=== PATIENT | female | born 1955 | race Caucasian/White ===

== ENCOUNTER 2017-09-22 16:21 | Emergency (ER) | payer BC, OTHER, SELFPAY ==
[2017-09-22 16:37] VITALS: BP 184/93
[2017-09-22] MEDS ORDERED: Sodium Chloride 0.9% 10 ML Syringe FLUSH PRN (17:42)
[2017-09-22] MEDS ORDERED: Acetaminophen 325 MG Tab PO ONE (17:42)
--- NOTE | 2017-09-22 17:43 | EDM.PDOC ---
ED HPI GENERAL MEDICAL PROBLEM - General Chief Complaint: Headache Stated Complaint: HIGH BP,MIGRAINE,TROUBLE WITH VISION Time Seen by Provider: 09/22/17 16:45 Source of Information: Reports: Patient History Limitations: Reports: No Limitations - History of Present Illness INITIAL COMMENTS - FREE TEXT/NARRATIVE: Patient is a 61 y/o female who presents to the E.D. complaining of a dull pressure migraine to the left side of her face and head. States the headache started 2 days ago and has utilized excedrin with some relief. States the discomfort has been constant in nature. States it feels like a migraine and notes last occurrence of migraine was 10 years ago. For the past few months has been dealing with increased sinus congestion with post nasal drainage and running nose. States she was evaluated the 04 of September diagnosed with viral URI. Questions if she may have a sinus infection. She has been traveling throughout the [place] for the past few weeks. Has been exposed to multiple people with viral symptoms. She has only used excedrin to treat the current symptoms. Has been tired as of recent and been experiencing heaviness to her arms with onset of symptoms. Denies fever, vision changes, worsening stiff neck, ear pain, chest pain, sob, vomiting, diarrhea, pain with urination, or rash. She offers no additional complaints. Left Headache Pain Score (Numeric/FACES): 5 - Related Data Allergies Allergy/AdvReac Type Severity Reaction Status Date / Time No Known Allergies Allergy Verified 02/24/15 16:19 Home Meds: Home Meds Omega3/Dha/Epa/Fish Oil/Vit D3 [[place]-3 + Vitamin D3] 1 tab PO DAILY 08/02/14 [ History] Alendronate [Fosamax] 1 tab PO ASDIRECTED 02/24/15 [History] Cholecalciferol (Vitamin D3) [Vitamin D3] 1,000 unit PO DAILY 02/24/15 [History] Lisinopril/Hydrochlorothiazide [Lisinopril-Hctz 10-12.5 mg Tab] 1 tab PO DAILY 02/24/15 [History] Multivitamin [Multi-Vitamin Daily] 1 tab PO DAILY 02/24/15 [History] Potassium Chloride 10 meq PO BID 02/24/15 [History] Simvastatin 10 mg PO BEDTIME 02/24/15 [History] Flaxseed/Omega3,6,9/Fatty Acid [Flax Seed Oil 1,300 mg Softgel] 1 tab PO BID 06/03 [History] Melatonin/Pyridoxine HCl (B6) [Melatonin 3 mg Tablet] 1 tab PO DAILY 02/25/15 [ History] Azithromycin [Zithromax] 500 mg PO ASDIRECTED #6 tablet 09/22/17 [Rx] Past Medical History - Past Health History Medical/Surgical History: Denies Medical/Surgical History HEENT History: Reports: Impaired Vision Other HEENT History: wears glasses Cardiovascular History: Reports: High Cholesterol, Hypertension Social & Family History - Tobacco Use Smoking Status *Q: Never Smoker Second Hand Smoke Exposure: No - Caffeine Use Caffeine Use: Reports: Coffee - Alcohol Use Days Per Week of Alcohol Use: 0 (occasional sip) Number of Drinks Per Day: 0 Total Drinks Per Week: 0 - Recreational Drug Use Recreational Drug Use: No Drug Use in Last 12 Months: No ED ROS GENERAL - Review of Systems Review Of Systems: ROS reveals no pertinent complaints other than HPI. - Physical Exam Exam: See Below Exam Limited By: No Limitations General Appearance: Alert, WD/WN, No Apparent Distress Eye Exam: Bilateral Eye: EOMI, PERRL Ears: Normal External Exam, Normal Canal, Hearing Grossly Normal, Normal TMs Nose: Normal Inspection, Nasal Drainage, Clear Rhinorrhea. No: Nasal Tenderness Throat/Mouth: Normal Inspection, Normal Oropharynx, Normal Voice, No Airway Compromise Head Exam: Atraumatic, Normocephalic Neck: Normal Inspection, Supple, Non-Tender, Full Range of Motion Respiratory/Chest: No Respiratory Distress, Lungs Clear, Normal Breath Sounds, No Accessory Muscle Use, Chest Non-Tender Cardiovascular: Normal Peripheral Pulses, Regular Rate, Rhythm GI/Abdominal: Normal Bowel Sounds, Soft, Non-Tender, No Organomegaly, No Distention Neuro Exam (Abbreviated): Alert, Oriented, CN II-XII Intact, Normal Cognition, Normal Gait, No Motor/Sensory Deficits, Other (cerebellar fx intact including: finger to nose, rapid alternating movements. No facial droop, temperal tenderness, slurred speech, or weekness to the upper/lower extremities. ) Back Exam: Normal Inspection Extremities: Normal Inspection, Normal Range of Motion, Non-Tender, No Pedal Edema, Normal Capillary Refill Psychiatric: Normal Affect, Normal Mood Skin Exam: Warm, Dry, Intact, Normal Color, No Rash Course - Vital Signs Last Recorded V/S: Last Vital Signs Temp 97.1 F 09/22/17 16:31 Pulse 62 09/22/17 16:31 Resp 18 09/22/17 16:31 BP 184/93 H 09/22/17 16:31 Pulse Ox 96 09/22/17 16:31 - Orders/Labs/Meds Labs: Laboratory Tests 09/22/17 09/22/17 Range/Units 16:30 16:30 WBC 5.95 (3.98-10.04) K/mm3 RBC 5.33 H (3.98-5.22) M/mm3 Hgb 15.4 (11.2-15.7) gm/L Hct 45.8 H (34.1-44.9) % MCV 85.9 (79.4-94.8) fl MCH 28.9 (25.6-32.2) pg MCHC 33.6 (32.2-35.5) g/dl RDW Std Deviation 41.3 (36.4-46.3) fL Plt Count 224 (182-369) K/mm3 MPV 10.5 (9.4-12.3) fl Neut % (Auto) 50.2 (34.0-71.1) % Lymph % (Auto) 32.8 (19.3-51.7) % [place] % (Auto) 10.9 (4.7-12.5) % Eos % (Auto) 4.9 (0.7-5.8) Baso % (Auto) 1.0 (0.1-1.2) % Neut # (Auto) 2.99 (1.56-6.13) K/mm3 Lymph # (Auto) 1.95 (1.18-3.74) K/mm3 [place] # (Auto) 0.65 H (0.24-0.36) K/mm3 Eos # (Auto) 0.29 (0.04-0.36) K/mm3 Baso # (Auto) 0.06 (0.01-0.08) K/mm3 Sodium 141 (136-145) mEq/L Potassium 3.7 (3.5-5.1) mEq/L Chloride 103 (98-107) mEq/L Carbon Dioxide 29 (21-32) mEq/L Anion Gap 12.7 (5-15) BUN 19 H (7-18) mg/dL Creatinine 1.0 (0.55-1.02) mg/dL Est Cr Clr Drug Dosing 53.16 mL/min Estimated GFR (MDRD) 56 (>60) mL/min BUN/Creatinine Ratio 19.0 H (14-18) Glucose 87 (80-115) mg/dL Calcium 9.6 (8.5-10.1) mg/dL Total Bilirubin 0.5 (0.2-1.0) mg/dL AST 31 (15-37) U/L ALT 56 (14-59) U/L Alkaline Phosphatase 99 (46-116) U/L Troponin I < 0.017 (0.00-0.056) ng/mL Total Protein 7.4 (6.4-8.2) g/dl Albumin 4.3 (3.4-5.0) g/dl Globulin 3.1 gm/dL Albumin/Globulin Ratio 1.4 (1-2) TSH 3rd Generation 2.761 (0.358-3.74) uIU/mL Meds: Medications Discontinued Medications Generic Name Dose Route Start Last Admin Trade Name Freq PRN Reason Stop Dose Admin Acetaminophen 650 mg 09/22/17 17:42 09/22/17 18:28 Tylenol PO 09/22/17 17:43 650 mg NOW ONE Administration Sodium Chloride 10 ml 09/22/17 17:42 09/22/17 18:28 Saline Flush FLUSH 10 ml ASDIRECTED PRN Administration Keep Vein Open - Re-Assessments/Exams Free Text/Narrative Re-Assessment/Exam: Upon admission to the E.D. patients BP is quite elevated which is above normal per patient. EKG and labs will be obtained. EKG sinus rhythm at a rate of [address] changes noted. Blood pressure recheck 139/77. Labs reviewed and discussed with patient. Will go ahead and treat the patient with fluticasone, Claritin, and short course of antibiotics for chronic sinusitis. She has appointment with her PCP this coming Tuesday for reevaluation. Discharge instructions as documented. Departure - Departure Time of Disposition: 19:09 Disposition: Home, Self-Care 01 Condition: Good Clinical Impression: Sinusitis Qualifiers: Sinusitis location: maxillary Chronicity: subacute Qualified Code(s): J01.00 - Acute maxillary sinusitis, unspecified - Discharge Information Prescriptions: Azithromycin [Zithromax] 500 mg PO ASDIRECTED #6 tablet Instructions: Sinus Headache, [id number] Referrals: Ruth Layne FRONT COUNTER CLERK [Primary Care Provider] - Forms: ED Department Discharge Additional Instructions: As discussed will treat you for chronic sinusitis with azithromycin 500 mg today then 250 mg by mouth thereafter. Flonase 1 spray to each nare twice a day and also Claritin 10 mg every day thereafter. May use nasal saline spray to each nare as needed throughout the course of the day. Take Tylenol and ibuprofen in alternating fashion for any discomfort. Follow-up with PCP as scheduled for next week. Return to the ED for any new or worsening symptoms
== END 2017-09-22 19:32 | disposition home or self-care (01) ==
LOC: JD.ED 16:21
DX: J01.00 Acute maxillary sinusitis, unspecified (principal); I10 Essential (primary) hypertension; E78.00 Pure hypercholesterolemia, unspecified; Z79.899 Other long term (current) drug therapy
CPT/HCPCS: 36415; 80053; 84443; 84484; 85025; 93005; 99284; A9270; J7050; 93010; 99283-25

== ENCOUNTER 2018-02-20 12:16 | Emergency (ER) | payer OTHER ==
[2018-02-20 12:30] VITALS: BP 153/85
[2018-02-20] MEDS ORDERED: Sodium Chloride 0.9% 10 ML Syringe FLUSH PRN (13:05)
--- NOTE | 2018-02-20 13:12 | EDM.PDOC ---
<YanelisViji - Last Filed: 02/20/18 13:07> ED HPI GENERAL MEDICAL PROBLEM - General Chief Complaint: Chest Pain Stated Complaint: RIGHT CHEST/BACK PAIN Time Seen by Provider: 02/20/18 12:37 Source of Information: Reports: Patient History Limitations: Reports: No Limitations - History of Present Illness INITIAL COMMENTS - FREE TEXT/NARRATIVE: 62 yo female presents to the ED for subxiphoid pain x 1 week. The pain is normally present but waxes and wanes throughout the day. The pain is sharp at times and dull and knotting at times, it normally radiates to the R shoulder blade area at its worse. She has associated nausea over the past week as well as increased shortness of breath. Denies chest pain or pressure or pleuritic chest pain. She believes food makes the nausea better. She has used some of her pain pills at home with moderate relief. She reports hot flashes and night sweats with "clamminess" over the past week, worse at night. Onset: Gradual Duration: Week(s): (1), Waxing/Waning Location: Reports: Chest, Abdomen Quality: Reports: Pressure, Stabbing Severity: Moderate Improves with: Reports: Rest Worsens with: Reports: Movement Associated Symptoms: Reports: Nausea/Vomiting, Shortness of Breath Chest Pain Score (Numeric/FACES): 2 - Related Data Allergies Allergy/AdvReac Type Severity Reaction Status Date / Time No Known Allergies Allergy Verified 02/20/18 12:30 Home Meds: Home Meds Omega3/Dha/Epa/Fish Oil/Vit D3 [[place]-3 + Vitamin D3] 1 tab PO DAILY 08/02/14 [ History] Alendronate [Fosamax] 1 tab PO ASDIRECTED 02/24/15 [History] Cholecalciferol (Vitamin D3) [Vitamin D3] 1,000 unit PO DAILY 02/24/15 [History] Lisinopril/Hydrochlorothiazide [Lisinopril-Hctz 10-12.5 mg Tab] 1 tab PO DAILY 02/24/15 [History] Multivitamin [Multi-Vitamin Daily] 1 tab PO DAILY 02/24/15 [History] Potassium Chloride 10 meq PO BID 02/24/15 [History] Simvastatin 10 mg PO BEDTIME 02/24/15 [History] Flaxseed/Omega3,6,9/Fatty Acid [Flax Seed Oil 1,300 mg Softgel] 1 tab PO BID 06/03 [History] Melatonin/Pyridoxine HCl (B6) [Melatonin 3 mg Tablet] 1 tab PO DAILY 02/25/15 [ History] Omeprazole Magnesium [Prilosec Otc] 20 mg PO DAILY #14 tablet. 02/20/18 [Rx] Past Medical History - Past Health History Medical/Surgical History: Denies Medical/Surgical History HEENT History: Reports: Impaired Vision Other HEENT History: wears glasses Cardiovascular History: Reports: High Cholesterol, Hypertension Social & Family History - Tobacco Use Smoking Status *Q: Never Smoker - Caffeine Use Caffeine Use: Reports: Coffee - Recreational Drug Use Recreational Drug Use: No ED ROS GENERAL - Review of Systems Review Of Systems: See Below Constitutional: Reports: Fever, Chills, Night Sweats. Denies: Malaise, Weakness Respiratory: Reports: Shortness of Breath. Denies: Wheezing, Pleuritic Chest Pain, Cough, Hemoptysis Cardiovascular: Reports: Chest Pain. Denies: Claudication, Dyspnea on Exertion , Edema, Lightheadedness, Orthopnea, Palpitations, PND Endocrine: Reports: No Symptoms GI/Abdominal: Reports: Abdominal Pain (chronic lower, bilateral), Nausea. Denies: Bloody Stool, Constipation, Diarrhea, Vomiting : Reports: No Symptoms Musculoskeletal: Reports: Shoulder Pain, Back Pain (chronic, worse over the past week). Denies: Arm Pain, Joint Swelling Skin: Reports: No Symptoms Neurological: Reports: Headache (mild). Denies: Confusion, Dizziness, Numbness , Paresthesia, Tingling Psychiatric: Reports: No Symptoms Hematologic/Lymphatic: Reports: No Symptoms Immunologic: Reports: No Symptoms ED EXAM, GI/ABD - Physical Exam Exam: See Below Exam Limited By: No Limitations General Appearance: Alert, WD/WN, No Apparent Distress Head: Atraumatic, Normocephalic Neck: Normal Inspection, Supple, Non-Tender, Full Range of Motion Respiratory/Chest: No Respiratory Distress, Lungs Clear, Normal Breath Sounds, No Accessory Muscle Use Cardiovascular: Normal Peripheral Pulses, Regular Rate, Rhythm, No Edema, No Murmur, No Rub GI/Abdominal Exam: Normal Bowel Sounds, Soft, Non-Tender Back Exam: Normal Inspection, Other (muscle tenderness to palpation near R scapula). No: Vertebral Tenderness Extremities: Normal Inspection, No Pedal Edema Neurological: Alert, Oriented, Normal Cognition Psychiatric: Normal Affect, Normal Mood Skin Exam: Warm, Dry, Intact, Normal Color Course - Vital Signs Last Recorded V/S: Last Vital Signs Temp 98.1 F 02/20/18 12:27 Pulse 60 02/20/18 12:27 Resp 16 02/20/18 12:27 BP 153/85 H 02/20/18 12:27 Pulse Ox 97 02/20/18 12:27 - Orders/Labs/Meds Orders: Active Orders 24 hr Category Date Time Status Cardiac Monitoring [RC] . DIRECTED Care 02/20/18 13:05 Active EKG Documentation Completion [RC] STAT Care 02/20/18 13:06 Active Peripheral IV Care [RC] . DIRECTED Care 02/20/18 13:06 Active Chest 2V [CR] Stat Exams 02/20/18 13:06 Taken CULTURE URINE [RM] Stat Lab 02/20/18 16:54 Ordered UA W/MICROSCOPIC [URIN] Stat Lab 02/20/18 13:25 Ordered Sodium Chloride 0.9% [Saline Flush] Med 02/20/18 13:05 Active 10 ml FLUSH ASDIRECTED PRN Peripheral IV Insertion Adult [OM.PC] Stat Oth 02/20/18 13:05 Ordered Medication Orders Sodium Chloride (Saline Flush) 10 ml FLUSH ASDIRECTED PRN PRN Reason: Keep Vein Open Last Admin: 02/20/18 13:08 Dose: 0.01 ml Labs: Laboratory Tests 02/20/18 02/20/18 02/20/18 Range/Units 13:17 13:17 13:25 WBC 4.76 (3.98-10.04) K/mm3 RBC 5.09 (3.98-5.22) M/mm3 Hgb 14.7 (11.2-15.7) gm/L Hct 43.7 (34.1-44.9) % MCV 85.9 (79.4-94.8) fl MCH 28.9 (25.6-32.2) pg MCHC 33.6 (32.2-35.5) g/dl RDW Std Deviation 40.6 (36.4-46.3) fL Plt Count 203 (182-369) K/mm3 MPV 9.7 (9.4-12.3) fl Neut % (Auto) 52.3 (34.0-71.1) % Lymph % (Auto) 33.8 (19.3-51.7) % [place] % (Auto) 8.0 (4.7-12.5) % Eos % (Auto) 4.6 (0.7-5.8) Baso % (Auto) 1.1 (0.1-1.2) % Neut # (Auto) 2.49 (1.56-6.13) K/mm3 Lymph # (Auto) 1.61 (1.18-3.74) K/mm3 [place] # (Auto) 0.38 H (0.24-0.36) K/mm3 Eos # (Auto) 0.22 (0.04-0.36) K/mm3 Baso # (Auto) 0.05 (0.01-0.08) K/mm3 Sodium 139 (136-145) mEq/L Potassium 4.2 (3.5-5.1) mEq/L Chloride 103 (98-107) mEq/L Carbon Dioxide 30 (21-32) mEq/L Anion Gap 10.2 (5-15) BUN 18 (7-18) mg/dL Creatinine 0.9 (0.55-1.02) mg/dL Est Cr Clr Drug Dosing 55.97 mL/min Estimated GFR (MDRD) > 60 (>60) mL/min BUN/Creatinine Ratio 20.0 H (14-18) Glucose 117 H (80-115) mg/dL Calcium 9.2 (8.5-10.1) mg/dL Total Bilirubin 0.6 (0.2-1.0) mg/dL AST 21 (15-37) U/L ALT 30 (14-59) U/L Alkaline Phosphatase 79 (46-116) U/L Troponin I < 0.017 (0.00-0.056) ng/mL Total Protein 6.6 (6.4-8.2) g/dl Albumin 3.9 (3.4-5.0) g/dl Globulin 2.7 gm/dL Albumin/Globulin Ratio 1.4 (1-2) Lipase 157 (73-393) U/L Urine Color Yellow (Yellow) Urine Appearance Clear (Clear) Urine pH 7.0 (5.0-8.0) Ur Specific [place] 1.015 (1.005-1.030) Urine Protein Negative (Negative) Urine Glucose (UA) Negative (Negative) Urine Ketones Negative (Negative) Urine Occult Blood Trace-lysed H (Negative) Urine Nitrite Negative (Negative) Urine Bilirubin Negative (Negative) Urine Urobilinogen 0.2 (0.2-1.0) Ur Leukocyte Esterase 3+ H (Negative) Urine RBC 0-5 (0-5) /hpf Urine WBC 30-40 H (0-5) /hpf Ur Epithelial Cells 20-30 H (0-5) /hpf Urine Bacteria Few (FEW) /hpf Urine Mucus Not seen (FEW) /hpf Meds: Medications Generic Name Dose Route Start Last Admin Trade Name Freq PRN Reason Stop Dose Admin Sodium Chloride 10 ml 02/20/18 13:05 02/20/18 13:08 Saline Flush FLUSH 0.01 ml ASDIRECTED PRN Administration Keep Vein Open Departure - Departure Disposition: Home, Self-Care 01 Clinical Impression: Abdominal pain Gastritis Qualifiers: Gastritis type: unspecified gastritis Chronicity: acute Gastritis bleeding: without bleeding Qualified Code(s): K29.00 - Acute gastritis without bleeding - Discharge Information Prescriptions: Omeprazole Magnesium [Prilosec Otc] 20 mg PO DAILY #14 tablet. Referrals: Ruth Layne, RESERVE OPERATOR [Primary Care Provider] - 1 Week Forms: ED Department Discharge Additional Instructions: Take your medication as prescribed. Take prilosec daily for 2 weeks. Follow up with Ruth Layne in 1 week. Please return if you are worse. - My Orders Last 24 Hours: My Active Orders 02/20/18 13:05 Cardiac Monitoring [RC] . DIRECTED Sodium Chloride 0.9% [Saline Flush] 10 ml FLUSH ASDIRECTED PRN Peripheral IV Insertion Adult [OM.PC] Stat 02/20/18 13:06 EKG Documentation Completion [RC] STAT Peripheral IV Care [RC] . DIRECTED Chest 2V [CR] Stat 02/20/18 13:25 UA W/MICROSCOPIC [URIN] Stat 02/20/18 16:54 CULTURE URINE [RM] Stat - Assessment/Plan Last 24 Hours: My Active Orders 02/20/18 13:05 Cardiac Monitoring [RC] . DIRECTED Sodium Chloride 0.9% [Saline Flush] 10 ml FLUSH ASDIRECTED PRN Peripheral IV Insertion Adult [OM.PC] Stat 02/20/18 13:06 EKG Documentation Completion [RC] STAT Peripheral IV Care [RC] . DIRECTED Chest 2V [CR] Stat 02/20/18 13:25 UA W/MICROSCOPIC [URIN] Stat 02/20/18 16:54 CULTURE URINE [RM] Stat <DeneenjudyMorrisCole - Last Filed: 02/20/18 17:01> Course - Re-Assessments/Exams Free Text/Narrative Re-Assessment/Exam: 02/20/18 16:54 I examined the patient and agree with Viji's assessment and plan. I ordered labs, EKG, CXR and an US of her gallbladder. Her EKG shows a NSR with no acute changes. Her CXR shows no acute changes. Her CBC and CMP look good. Her troponin was negative. Her UA shows some blood WBCs and epithelial cells. She does not have symptoms. I will order a culture. Her US shows echogenic renal cortex raising the possibility of medical renal disease. No additional abnormality is identified on abdominal US. I feel this is an ulcer or reflux. I will get her on some prilosec and have her follow up with Ruth Layne. Departure - Departure Time of Disposition: 17:00 Condition: Good
--- NOTE | 2018-02-20 16:38 | US ---
Limited abdominal ultrasound: Multiple real-time images of the upper right abdomen was obtained. Liver shows no focal abnormality. Gallbladder contains no gallstones. No gallbladder wall thickening or biliary duct dilatation is seen. Right kidney shows no hydronephrosis or mass. Right kidney has a length of 10.6 cm. Pancreas is unremarkable. Echogenic renal cortex is seen of the right kidney. Impression: 1. Echogenic renal cortex raising the possibility of medical renal disease. 2. No additional abnormality is identified on abdominal ultrasound exam. Diagnostic code #3
--- NOTE | 2018-02-22 10:39 | CR ---
Chest: Two views of the chest were obtained. Comparison: Prior chest x-ray of 01/29/15. Heart size appears within normal limits. Tortuous thoracic aorta is seen. Scoliosis is noted within the spine. Lungs are clear with no acute parenchymal change. Impression: 1. Incidental findings. Nothing acute is appreciated on two-view chest x-ray. Diagnostic code #2
== END 2018-02-20 17:13 | disposition home or self-care (01) ==
LOC: JD.ED 12:16
DX: K29.00 Acute gastritis without bleeding (principal); I10 Essential (primary) hypertension; E78.00 Pure hypercholesterolemia, unspecified; Z79.899 Other long term (current) drug therapy
CPT/HCPCS: 36415; 71046; 76705; 80053; 81001; 83690; 84484; 85025; 87086; 87088; 87186; 93005; 99285; J7050; 99283